=== PATIENT | male | born 1985 | race Caucasian/White ===

== ENCOUNTER 2018-04-13 10:09 | Emergency (ER) | payer OTHER ==
[~2018-04-13] VITALS: Ht 175.3 cm; Wt 61.7 kg
[~2018-04-13 10:09] MED LIST: NOHOMEMEDICATIONS
[2018-04-13 11:20] LABS: URINE BILIRUBIN NEGATIVE (Negative); URINE BLOOD NEGATIVE (Negative); URINE CLARITY CLEAR; URINE COLOR YELLOW; URINE GLUCOSE-RANDOM NEGATIVE (Negative); URINE KETONES 1+ (Negative); URINE LEUKOCYTES-REFLEX NEGATIVE (Negative); URINE NITRITE-REFLEX NEGATIVE (Negative); URINE PROTEIN TRACE (Negative); URINE UROBILINOGEN 0.2 E.U./dl (0.2-1.0)
[2018-04-13 11:37] LABS: ABSOLUTE MONOCYTES 0.8 thou/uL (0.0-1.2); ABSOLUTE NEUTROPHILS 5.1 thou/uL (1.6-8.1); BASOPHILS 0.5 %; EOSINOPHILS 0.4 %; HEMATOCRIT 46.3 % (42.0-52.0); HEMOGLOBIN 16.1 gm/dL (14.0-18.0); LYMPHOCYTES 14.9 %; MCH 30.5 pg (26.0-34.0); MCHC 34.7 g/dL (28.0-37.0); MONOCYTES 10.9 %; MPV 9.4 fl. (7.2-11.1); NUCLEATED RBCS 0 /100WBC; PLATELET COUNT* 181 thou/uL (150-400); POLYS 73.3 %; RBC 5.26 mil/uL (4.50-6.00); RDW-CV 13.1 % (10.5-14.5); WBC 6.9 thou/uL (4.0-11.0)
[2018-04-13 11:59] LABS: ANION GAP 11 mmol/L (7-16); BUN 28 mg/dL (7-18); CALCIUM 9.1 mg/dL (8.5-10.1); CHLORIDE 98 mmol/L (98-107); CO2 27 mmol/L (21-32); CREATININE 1.2 mg/dL (0.6-1.3); GLUCOSE 113 mg/dL (70-99); POTASSIUM 3.3 mmol/L (3.5-5.1); SODIUM 136 mmol/L (136-145)
[2018-04-13 12:06] LABS: ALBUMIN 4.1 g/dL (3.4-5.0); ALKALINE PHOSPHATASE 69 U/L (46-116); LIPASE 85 U/L (73-393); SGOT 19 U/L (15-37); SGPT 33 U/L (30-65); TOTAL BILIRUBIN 2.1 mg/dL (<0.1-1.0); TOTAL PROTEIN 7.6 g/dL (6.4-8.2); TROPONIN-I LEVEL <0.06 ng/mL (<0.06)
[2018-04-13] MEDS ORDERED: HYDROCODONE-AP1 EAC6 PO (12:14)
[2018-04-13] MEDS ORDERED: PHENERGAN 25 MG25 M1 PO (12:14)
[2018-04-13 12:26] VITALS: BP 113/55
--- NOTE | 2018-04-14 10:20 | EKG ---
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: : 1985 Requested By: Marquis Whitman Order Number: [id number] Mi MD: Kashif Hardy Measurements Intervals [place] Rate: 61 P: 23 NC: 125 QRS: 82 QRSD: 99 T: 62 QT: 459 QTc: 463 Interpretive Statements Sinus rhythm ST elev, probable normal early repol pattern Baseline wander in lead(s) V1,V2 No previous ECG available for comparison Electronically Signed On 04-14-2018 10:20:42 ACCOUNT ANALYST by Kashif Hardy [email or web address] <ELECTRONICALLY SIGNED> By: Kashif Hardy MD, [facility] 04/14/18 1020 1027 1027 Kashif Hardy MD, FACC /EPI
--- NOTE | 2018-04-14 10:21 | EKG ---
[place] [address] ELECTROCARDIOGRAM REPORT Name: CHAD MARCANO [id number] Admission: 04/13/18 Attend Phys: Discharge: 04/13/18 Date of : 83 Report #: [id number] THIS REPORT FOR: //name// [facility] ED Test Date: 2018-04-13 Test Time: 11:19:46 Pat Name: CHAD MARCANO Department: Room: Gender: Ginner: Mercedez DOZIER : 1985 Requested By: Marquis Whitman Order Number: [id number] MD: Kashif Hardy Measurements Intervals [place] Rate: 50 P: 6 MD: 127 QRS: 75 QRSD: 108 T: 56 QT: 495 QTc: 452 Interpretive Statements Sinus rhythm No previous ECG available for comparison Electronically Signed On 04-14-2018 10:20:56 PENOLOGY PROFESSOR by Kahsif Hardy [email or web address] <ELECTRONICALLY SIGNED> By: Kashif Hardy MD, [facility] 04/14/18 1020 1119 1119 Kashif Hardy MD, FACC /EPI
== END 2018-04-13 12:27 | disposition home or self-care (01) ==
LOC: M.ERS 10:09
PROVIDERS: Emergency Medicine Emergency Medical Services
DX: K52.9 Noninfective gastroenteritis and colitis, unspecified (principal); Z88.0 Allergy status to penicillin; Z88.1 Allergy status to other antibiotic agents